=== PATIENT | male | born 1985 | race Two or more races ===

== ENCOUNTER 2020-10-08 06:04 | Emergency (ER) | payer OTHER, SELFPAY ==
--- NOTE | ~2020-10-08 | XR_ITS ---
EXAMINATION: XR HAND, LEFT CLINICAL INFORMATION: Laceration left thumb COMPARISON: None TECHNIQUE: Left hand is imaged in 3 views. FINDINGS: There is no fracture, dislocation, or bony destructive process. No periostitis. No visible radiopaque soft tissue foreign body. XR/XR hand LT 2V IMPRESSION: No fracture or dislocation or visible radiopaque soft tissue foreign body.
[2020-10-08 06:23] VITALS: BP 133/75; PULSE 72; RESP 20; TEMP 36.2; O2SAT 100; BMI 34.0
[2020-10-08] MEDS: Lidocaine HCl 2 % MPF 5 ML VIAL SUBCUT (08:25)
--- NOTE | 2020-10-08 08:39 | ED.WOUNDLAC ---
HPI - Wound/Laceration General Chief Complaint: Wound/Laceration Stated Complaint: left hand lac (work injury) Time Seen by Provider: 10/08/20 08:15 Source: patient Mode of arrival: ambulatory Limitations: no limitations History of Present Illness HPI narrative: 35 yo male here with laceration to left thumb after cutting himself with a telecommunicator knife at work. Tetanus UTD Related Data Allergies Allergy/AdvReac Type Severity Reaction Status Date / Time No Known Allergies Allergy Unverified 01/04/20 15:54 Review of Systems Review of Systems: Yes all other systems are reviewed and are negative Constitutional: Constitutional: Reports no additional constitutional complaints, Denies body ache(s), Denies chills, Denies fever(s), Denies headache(s) and Denies weakness Eyes: Eyes: Reports no additional eye complaints and Denies change in vision ENT: Reports system reviewed and no additional complaints, except as documented, Denies dizziness, Denies headache(s), Denies nasal congestion, Denies nasal discharge and Denies neck pain Cardiovascular: Cardiovascular: Reports no additional cardiovascular complaints, Denies chest pain, Denies leg edema and Denies dyspnea Respiratory: Respiratory: Reports no additional respiratory complaints, Denies cough and Denies dyspnea Gastrointestinal: Gastrointestinal: Reports no additional gastrointestinal complaints, Denies abdominal pain, Denies diarrhea, Denies nausea and Denies vomiting Genitourinary: Genitourinary: Denies urinary incontinence Musculoskeletal: Musculoskeletal: Reports no additional musculoskeletal complaints, Denies back pain, Denies arthralgias, Denies joint swelling, Denies neck pain, Denies numbness and Denies tingling Integumentary/Breasts: Skin/Breast: Reports system reviewed and no additional complaints, except as docu and Denies rash Comments: +laceration Neurologic: Reports system reviewed and no additional complaints, except as documented, Denies Abnormal speech present, Denies dizziness, Denies headache(s), Denies numbness, Denies tingling and Denies weakness PMFSH Past Medical History Attestation statement: The following information was validated with the patient. Source: old records reviewed and nursing notes reviewed Social History Social History Advance Directives: Yes Advance Directives Information Provided: Yes Advance Directives on File: No Physical Exam Vital Signs: Vital Signs: Last Vital Signs Temp 97.2 F 10/08/20 06:23 Pulse 72 10/08/20 06:23 Resp 20 10/08/20 06:23 BP 133/75 10/08/20 06:23 Pulse Ox 100 10/08/20 06:23 Body Mass Index 34.0 Const: General: cooperative, healthy appearing, comfortable and no acute distress Orientation/consciousness: patient oriented x3 Limitations: no limitations HENMT: Head: Yes normal to inspection Ears: hearing grossly normal bilaterally General nose exam: Normal external nose present Face and sinus: Yes normal facial exam Mouth: Normal oral and palatal mucosa present Throat: Yes posterior oropharynx normal Eyes: General: appearance normal, both eyes and all related structures Pupils: Equal, round and reactive pupils present Neck: Neck: Yes normal visual inspection Chest: Chest palpation & inspection: normal inspection of the chest Resp: Effort & Inspection: normal respiratory effort Auscultation: clear to auscultation bilaterally Cardio: Rate: regular rate Rhythm: regular rhythm Peripheral pulses: Peripheral pulses 2+ throughout GI: Inspection: Yes normal to inspection Palpation (GI): Soft to palpation and nontender Auscultation: normal bowel sounds Back/Spine/Pelvis: Thoracic/Lumbar Spine: thoracic and lumbar spine normal to inspection Skin: General skin exam: no rashes or lesions noted Neuro: General: patient oriented x3, no focal motor deficits and normal sensation to monofilament Cranial nerves: Yes Equal, round and reactive pupils present Cognition (Neuro): normal cognition Speech: No Abnormal speech present Gait exam (Neuro): Normal gait present Motor exam (neuro): 5/5 motor strength present throughout Extrem: Other: FROM Also small abrasion to palmar aspect of left hand General: Yes normal to inspection Course Course Course Narrative: Laceration to left thumb after work injury. Will check x-ray, will need wound repair. 1000-See wound repair noted. Steri strips to left palm. X-ray shows no bony abnormality. Will have f/u with work connection. Reviewed worrisome signs.symptoms with patient and when to return to ED. Comfortable with discharge home. Procedures Laceration Laceration 1: Site: hand (thumb) Side (If applicable): left Size (cm): 5 Description: linear Depth: simple, single layer Local Anesthetic: lidocaine 2% Amount of anesthesia used (mL): 3 Pre-repair: wound explored, irrigated extensively and deep structures intact Skin layer closed with: nylon Size (cm): 5-0 Number of sutures: 8 Technique: simple, interrupted MDM - Wound/Laceration Medical Records Attestation: I reviewed the patient's medical records. Lab Data Attestation: I reviewed the patient's lab results. Imaging Data left hand x-ray: Attestation: I personally reviewed and interpreted this imaging study as follows: Radiologist's impression: [address] [address] ReportSigned Patient: Felipe BarrMR#: [id number]: [id number]:[id number]/Sex: 35 / MADM Date: 10/08/20Loc: HO.EDAttending Dr: Ordering Physician: HAVEN LOONEY NP Date of Service: 10/08/20 Procedure(s): XR hand LT 2V Accession Number(s): [id number] cc: HAVEN LOONEY NP~ EXAMINATION: XR HAND, LEFT CLINICAL INFORMATION: Laceration left thumb COMPARISON: None TECHNIQUE: Left hand is imaged in 3 views. FINDINGS: There is no fracture, dislocation, or bony destructive process. No periostitis. No visible radiopaque soft tissue foreign body. XR/XR hand LT 2V IMPRESSION: No fracture or dislocation or visible radiopaque soft tissue foreign body. Discharge Plan Discharge Clinical Impression: Laceration Patient Disposition: Home, Self-Care Instructions: Finger Laceration (ED) Additional Instructions: Follow-up with work connection [phone] as discussed Sutures out in 7-10 days Referrals: Charlie Guerrero MD [Primary Care Provider] - 2 days (as needed ) Stand Alone Forms: Work/School Release Interventions: ED Discharge Assessment Last Done: 10/08/20 09:51 Discharge Date/Time: 10/08/20 09:51
== END 2020-10-08 09:51 | disposition home or self-care (01) ==
PROVIDERS: Emergency Provider Emergency Medicine Emergency Medical Services; PCP Internal Medicine
DX: S61.012A Laceration without foreign body of left thumb without damage to nail, initial encounter (principal); W26.0XXA Contact with knife, initial encounter; Y93.9 Activity, unspecified; Y92.89 Other specified places as the place of occurrence of the external cause; Y99.0 Civilian activity done for income or pay
CPT/HCPCS: 12002; 73120; 99283; 99284

== ENCOUNTER → 2020-10-09 14:32 | Outpatient (BNVA) | payer OTHER, SELFPAY | PROVIDERS: PCP Internal Medicine; Visit Provider Physician Assistant | DX: S61.012A Laceration without foreign body of left thumb without damage to nail, initial encounter (principal); W26.0XXA Contact with knife, initial encounter | CPT/HCPCS: 99203 ==

== ENCOUNTER → 2020-10-11 09:12 | Outpatient (BNVA) | payer OTHER, SELFPAY | PROVIDERS: PCP Internal Medicine; Visit Provider Physician Assistant Medical | DX: S61.012A Laceration without foreign body of left thumb without damage to nail, initial encounter (principal); L03.012 Cellulitis of left finger; X58.XXXA Exposure to other specified factors, initial encounter | CPT/HCPCS: 99213 ==

== ENCOUNTER → 2020-10-15 09:12 | Outpatient (BNVA) | payer OTHER, SELFPAY | PROVIDERS: PCP Internal Medicine; Visit Provider Physician Assistant | DX: S61.012A Laceration without foreign body of left thumb without damage to nail, initial encounter (principal); X58.XXXA Exposure to other specified factors, initial encounter; Z48.02 Encounter for removal of sutures | CPT/HCPCS: 99212; 99213 ==

== ENCOUNTER → 2020-10-17 13:05 | Outpatient (BNVA) | payer OTHER, SELFPAY | PROVIDERS: PCP Internal Medicine; Visit Provider Physician Assistant Medical | DX: S61.012D Laceration without foreign body of left thumb without damage to nail, subsequent encounter (principal); L03.012 Cellulitis of left finger; X58.XXXD Exposure to other specified factors, subsequent encounter | CPT/HCPCS: 99213 ==

== ENCOUNTER → 2020-10-24 14:38 | Outpatient (BNVA) | payer OTHER, SELFPAY | PROVIDERS: PCP Internal Medicine; Visit Provider Physician Assistant | DX: S61.012D Laceration without foreign body of left thumb without damage to nail, subsequent encounter (principal); R20.2 Paresthesia of skin | CPT/HCPCS: 99202 ==